=== PATIENT | female | born 1975 | race Caucasian/White ===

== ENCOUNTER 2025-06-11 14:58 | Emergency (ER) | payer MEDICAID, OTHER ==
[~2025-06-11] VITALS: Ht 170.2 cm; Wt 74.5 kg
[~2025-06-11 14:58] MED LIST: IBUP600T52 PO; LAMO100T MT
[2025-06-11 15:44] LABS: MEAN PLATELET VOLUME 9.2 FL (7.4-10.4); RED CELL DISTRIBUTION WIDTH 14.9 % (11.5-14.5)
[2025-06-11 15:52] LABS: LEUKOCYTE ESTERASE ,URINE NEGATIVE (Neg); NITRITES, URINE NEGATIVE (Neg); OCCULT BLOOD,URINE NEGATIVE (Neg)
[2025-06-11 15:59] LABS: URINE HCG NEGATIVE (NEG)
[2025-06-11 16:00] LABS: UA COLLECTION TYPE CLN CATCH MIDSTREAM
[2025-06-11 16:02] LABS: MUCUS STRANDS FEW /LPF (Neg); SQUAMOUS EPITHELIAL CELL,UR MODERATE /LPF (FEW)
[2025-06-11 16:04] LABS: CREATININE 0.81 MG/DL (0.40-0.90); TOTAL CARBON DIOXIDE 25.0 MMOL/L (24-32); eCRCL 84 ML/MIN; eGFR 76 ML/MIN
[2025-06-11 17:05] VITALS: BP 121/86; PULSE 83; RESP 14; TEMP 98; O2SAT 99
--- NOTE | 2025-06-11 17:11 | Physician Documentation ---
History of Present Illness ~ Chief Complaint: Seizure Stated Complaint: SEIZURE Time Seen by MD: 16:52 OK to notify your PCP?: Yes Primary Medical Doctor: NONE Neurologist Source: patient, RN/MD, EMS Mode of Arrival: EMS HPI Patient is seen today been brought in by ambulance with complaints of a breakthrough seizure. Patient states he normally takes Lamictal 100 mg a day and does see a neurologist regularly. She states he will now set up an appointment with her neurologist for re-evaluation as soon as possible. Patient states she is currently feeling fine and she states she felt a seizure coming on and denies any head strike or head trauma or neck pain or injury. She states she is feeling much better and wants to go home in his no other concern or complaint at this time. He states he may have missed a few doses over the last few days of her medication Lamictal. 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 Review of Systems Constitutional: Denies: chills, fever, weakness Eyes: Denies: pain, blurred vision ENT: Denies: ear pain, nose pain, throat pain, mouth pain Respiratory: Denies: cough, shortness of breath Cardiovascular: Denies: chest pain, palpitations Gastrointestinal: Denies: abdominal pain, nausea, vomiting Genitourinary: Denies: burning, dysuria Female Genitalia: Denies: vaginal discharge, pelvic pain Neurological: Denies: headache, dizziness Musculoskeletal: Denies: pain, swelling Integumentary: Denies: rash, lesions Allergic/Immunologic: Denies: hives, itching Hematologic/Lymphatic: Denies: no symptoms reported Psychiatric: Denies: depression, anxiety Physical Exam Vital Signs: Temperature: 98.0, Source: Oral, Heart Rate: 83, Respiratory Rate: 16, BP: 121/86, Pulse Oximetry: 99, Weight: 74.550 Physical Exam General: Awake and Alert, no acute distress. HEENT: Conjunctiva pink, Sclera clear, Mucus Membranes moist. Neck: Supple without masses and tenderness. Resp: Unlabored. Lungs clear to auscultation bilaterally. Heart: Regular Rate and rhythm, normal S1 and S2 without murmur, rub or gallop. Abdomen: Soft and non tender no organomegaly Extremities: No cyanosis,clubbing or edema. Skin: Warm and Dry. Progress Results/Orders Results/Orders Vital Signs 06/11/25 06/11/25 06/11/25 06/11/25 15:02 15:09 15:22 16:33 Temp 98.0 Pulse 98 83 Resp 16 16 16 B/P (MAP) 136/95 121/86 (98) Pulse Ox 98 98 99 O2 Delivery Room Air* O2 Flow Rate 0 FiO2 N/A Laboratory Tests Test 06/11/25 15:25 06/11/25 15:29 Urine Specimen Description Cln catch midstream Urine Color Yellow Urine Clarity Clear Urine pH 6.0 Urine Specific Cowen 1.020 Urine Protein Trace Urine Glucose (UA) Negative Urine Ketones Negative Urine Occult Blood Negative Urine Nitrite Negative Urine Bilirubin Negative Urine Urobilinogen 0.2 Urine Leukocyte Esterase Negative Urine RBC 0-2 Urine WBC None seen Urine Squamous Epithelial Cells Moderate Urine Bacteria None seen Urine Mucus Few Urine Culture Indicated Not ind Volume Urine Centrifuged 10 ml Urine HCG, Qualitative Negative Urine Comment White Blood Count 8.6 Red Blood Count 4.18 L Hemoglobin 12.7 Hematocrit 37.8 Mean Corpuscular Volume 90.4 Mean Corpuscular Hemoglobin 30.4 Mean Corpuscular Hemoglobin Concent 33.6 Red Cell Distribution Width 14.9 H Platelet Count 192 Mean Platelet Volume 9.2 Neutrophils (%) (Auto) 66.8 Lymphocytes (%) (Auto) 25.2 Monocytes (%) (Auto) 7.3 Eosinophils (%) (Auto) 0 Basophils (%) (Auto) 0.7 Neutrophils # (Auto) 5.8 Lymphocytes # (Auto) 2.2 Monocytes # (Auto) 0.6 Eosinophils # (Auto) 0.0 Basophils # (Auto) 0.1 CBC Comment Sodium Level 142 Potassium Level 3.8 Chloride Level 108 H Carbon Dioxide Level 25.0 Anion Gap 9 Blood Urea Nitrogen 8 Creatinine 0.81 Estimated GFR/1.73 m2 76 BUN/Creatinine Ratio 9.9 L Glucose Level 89 Calcium Level 7.8 L Total Bilirubin 0.3 Aspartate Amino Transf (AST/SGOT) 23 Alanine Aminotransferase (ALT/SGPT) 13 Alkaline Phosphatase 100 Total Protein 7.0 Albumin 3.4 Globulin 3.6 Albumin/Globulin Ratio 0.9 L Chemistry Comments Medical Decision Making Additional information obtaine: N/A Findings Patient is seen today been brought in by ambulance with complaints of a breakthrough seizure. Patient states he normally takes Lamictal 100 mg a day and does see a neurologist regularly. She states he will now set up an appointment with her neurologist for re-evaluation as soon as possible. Patient states she is currently feeling fine and she states she felt a seizure coming on and denies any head strike or head trauma or neck pain or injury. She states she is feeling much better and wants to go home in his no other concern or complaint at this time. He states he may have missed a few doses over the last few days of her medication Lamictal. Patient will follow up with primary care and neurologist as soon as possible. Patient will be more strictly adherent to the compliance of taking her Lamictal as prescribed. Return to ED with any worsening, concerning or changing symptoms. Differential Dx:Considerations: Include: Hyperventilation, Psychogenic seizure, Due to alcohol withdrawl, Syncope, Epilepsy-break through Departure Disposition: 01 HOME / SELF CARE / HOMELESS Impression: Primary Impression: Seizure disorder Condition: Improved Discharge Instructions: Epilepsy Referrals: NO PRIMARY CARE PROVIDER (PCP) Signature Scribe Signature: No scribe Attestation: No scribe CATHY FINN Jun 11, 2025 17:11
--- NOTE | 2025-06-12 11:10 | ELECTROCARDIOGRAPH REPORT ---
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 JOSE Otero Measurements Intervals [place] Rate: 99 P: 48 NE: 205 QRS: 72 QRSD: 114 T: 54 QT: 396 QTc: 509 Interpretive Statements Sinus rhythm Prolonged NE interval Borderline intraventricular conduction delay Low voltage, precordial leads ST elev, probable normal early repol pattern Borderline prolonged QT interval Electronically Signed On 06-12-2025 13:09:[address] JOSE Otero Please click the below link to view image of tracing.
== END 2025-06-11 17:08 | disposition home or self-care (01) ==
LOC: ER 14:58
DX: G40.909 Epilepsy, unspecified, not intractable, without status epilepticus (principal); F12.90 Cannabis use, unspecified, uncomplicated; Z88.5 Allergy status to narcotic agent; Z90.49 Acquired absence of other specified parts of digestive tract; Z87.440 Personal history of urinary (tract) infections; Z79.899 Other long term (current) drug therapy
CPT/HCPCS: 36415; 80053; 81001; 81025; 85025; 93005; 99284; A4620